=== PATIENT | male | born 1960 | race Caucasian/White ===

== ENCOUNTER 2019-08-09 06:00 | Outpatient (RCR) | payer MEDICARE, SELFPAY | END 2019-09-08 00:01 | LOC: TPT 06:00 | PROVIDERS: Family Provider Specialist; Visit Provider Anesthesiology Pain Medicine | DX: M47.816 Spondylosis without myelopathy or radiculopathy, lumbar region (principal) | CPT/HCPCS: 97110 ×5; G0283 ×5 ==

== ENCOUNTER 2019-09-09 12:15 | Outpatient (RCR) | payer MEDICARE, SELFPAY | END 2019-10-09 23:59 | disposition home or self-care (01) | LOC: TPT 12:15 | PROVIDERS: PCP Anesthesiology Pain Medicine; Visit Provider Anesthesiology Pain Medicine | DX: M47.26 Other spondylosis with radiculopathy, lumbar region (principal); M48.061 Spinal stenosis, lumbar region without neurogenic claudication | CPT/HCPCS: 97110; 97530; G0283 ==

== ENCOUNTER 2019-10-13 15:30 | Outpatient (RCR) | payer MEDICARE, SELFPAY | END 2019-11-07 23:59 | disposition home or self-care (01) | LOC: TPT 15:30 | PROVIDERS: PCP Anesthesiology Pain Medicine; Visit Provider Anesthesiology Pain Medicine | DX: Z01.89 Encounter for other specified special examinations (principal) ==

== ENCOUNTER 2022-02-24 09:34 | Inpatient (IN) | payer MEDICARE, SELFPAY ==
[2022-02-24 09:50] VITALS: BP 134/80; PULSE 86; RESP 18; TEMP 36.7; O2SAT 95; BMI 29.0
--- NOTE | 2022-02-24 10:20 | ECG_ITS ---
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 Measurements Intervals [place] Rate: 77 P: 26 AL: 154 QRS: 66 QRSD: 98 T: 77 QT: 363 QTc: 411 Interpretive Statements SINUS RHYTHM No previous ECG available for comparison Electronically Signed On 02-25-2022 13:04:01 CDT by Kera Banerjee M.D. [id number]
--- NOTE | 2022-02-24 10:27 | USR_ITS ---
PROCEDURE INFORMATION: Exam: US Duplex Right Lower Extremity Veins, Limited Exam date and time: 02/24/2022 10:34 AM Age: 61 years old Clinical indication: Pain; Leg, lower; Right; Additional info: R leg pain TECHNIQUE: Imaging protocol: Real-time Duplex ultrasound of the Right Lower Extremity with 2-D zamora scale, color Doppler flow and spectral waveform analysis with image documentation. Limited exam was focused on the right lower extremity veins. COMPARISON: No relevant prior studies available. FINDINGS: Right deep veins: Unremarkable. The common femoral, femoral, proximal profunda femoral and popliteal veins are patent without thrombus. Normal Doppler waveforms. Normal compressibility and/or augmentation response. Right superficial veins: Unremarkable. Saphenofemoral junction is patent without thrombus. Soft tissues: Unremarkable. US/[place] [id number] IMPRESSION: No evidence of deep vein thrombosis.
[2022-02-24] MEDS: sodium chloride 0.9% 500 ML IV (11:12)
[2022-02-24 11:25] VITALS: BP 164/79; RESP 18; O2SAT 97
[2022-02-24 11:28] LABS: Basophils % 0.3 %; Eosinophils # 0.1 10^3/uL (0.0-0.8); Eosinophils % 0.5 %; Hematocrit 37.3 % (42.0-52.0); Hemoglobin 12.6 g/dL (11.7-16.6); Lymphocytes # 0.6 10^3/uL (0.8-4.8); Lymphocytes % 3.9 %; Mean Corpuscular HGB Conc 33.8 g/dL (30.0-36.0); Mean Corpuscular Volume 91.9 fl (80-94); Mean Platelet Volume 10.6 fL (7.4-10.4); Monocytes # 0.5 10^3/uL (0.2-0.9); Neutrophils # 13.81 10^3/uL (1.8-7.7); Neutrophils % 91.2 %; Nucleated Red Blood Cells % 0 %; Platelet Count 91 10^3/cmm (130-400); Red Blood Count 4.06 10^6/uL (4.1-5.3); Red Cell Distribution Width 15.9 % (12.1-15.1); White Blood Count 15.2 10^3/uL (4.0-10.0)
[2022-02-24 11:59] LABS: Add Urine Culture? No; Add Urine Microscopic? YES; Bacteria Urine 1+ /hpf; Bilirubin Urine Neg (Negative); Blood Urine 2+ (Negative); Glucose Urine UA Norm (Normal); Ketones Urine Negative (Negative); Leukocyte Esterase Urine Negative (Negative); Nitrate Urine Negative (Negative); Protein Urine 1+ (Negative); RBC Urine 0-4 /hpf (0-2); Specific Gravity, Urine 1.015 (1.005-1.030); Squamous Epithelial Cell Urine 0-4 /hpf (0-5); Urine Appearance SL Hazy (CLEAR); Urine Color Dark Yellow (Yellow); Urobilinogen Urine Norm (Negative); pH Urine 5 (5-7)
[2022-02-24 12:02] LABS: Alanine Aminotransferase 41 U/L (0-41); Albumin Level 4.3 g/dL (3.5-5.2); Alkaline Phosphatase 146 IU/L (40-130); Anion Gap 23.3 (5-19); Aspartate Amino Transferase 30 U/L (0-40); Blood Urea Nitrogen 55 mg/dL (8-23); Calcium 9.4 mg/dL (8.5-10.5); Carbon Dioxide 23 mmol/L (22-29); Chloride 94 mmol/L (98-107); Globulin 4.5 g/dL (1.3-4.6); Glomerular Filtration Rate 7.7 mL/min (90-130); Glucose 272 mg/dL (65-115); Magnesium 2.2 mg/dL (1.7-2.3); Osmolality Calculated 303 mOsm/kg (285-295); Potassium 6.3 mmol/L (3.5-5.1); Sodium 134 mmol/L (136-145); Total Bilirubin 0.7 mg/dL (0.15-1.2); Total Protein 8.8 g/dL (6.6-8.7)
--- NOTE | 2022-02-24 12:36 | PC.NURSE ---
Rounded on pt at this time. Pt requesting more fluids. Will discuss with
--- NOTE | 2022-02-24 12:42 | W.ED.AMS ---
HPI - Altered Mental Status General: Chief Complaint: Altered Mental Status Stated Complaint: cramps Time Seen by Provider: 02/24/22 10:09 Source: patient Mode of arrival: ambulatory Limitations: no limitations PFSH ED PFSH: Medical History (Updated 02/24/22 @ 13:58 by Montrell Jeffries MD) History of end stage renal disease History of penile cancer Surgical History (Updated 02/24/22 @ 13:55 by Montrell Jeffries MD) History of liver transplant Family History (Updated 02/24/22 @ 13:58 by Montrell Jeffries MD) Father No problems noted. Mother Cancer Social History (Updated 02/24/22 @ 13:57 by Montrell Jeffries MD) Smoking and tobacco status: never smoked Alcohol intake: never Substance/Drug Use: never Course Vital Signs: Vital signs: Vital Signs Temperature 98.0 F 02/24/22 09:50 Pulse Rate 90 02/24/22 13:00 Respiratory Rate 16 02/24/22 13:00 Blood Pressure 191/73 02/24/22 14:02 Pulse Oximetry 100 02/24/22 13:00 MDM - Altered Mental Status Lab Data : 02/24/22 11:00 02/24/22 11:00 Radiology Impressions Venous Duplex 02/24/22 10:27 IMPRESSION: No evidence of deep vein thrombosis. Laboratory Results WBC 15.2 10^3/uL (4.0-10.0) H 02/24/22 11:00 RBC 4.06 10^6/uL (4.1-5.3) L 02/24/22 11:00 Hgb 12.6 g/dL (11.7-16.6) 02/24/22 11:00 Hct 37.3 % (42.0-52.0) L 02/24/22 11:00 MCV 91.9 fl (80-94) 02/24/22 11:00 MCH 31.0 pg (28.0-34.0) 02/24/22 11:00 MCHC 33.8 g/dL (30.0-36.0) 02/24/22 11:00 RDW 15.9 % (12.1-15.1) H 02/24/22 11:00 Plt Count 91 10^3/cmm (130-400) L 02/24/22 11:00 MPV 10.6 fL (7.4-10.4) H 02/24/22 11:00 Neut % (Auto) 91.2 % 02/24/22 11:00 Lymph % (Auto) 3.9 % 02/24/22 11:00 [place] % (Auto) 3.0 % 02/24/22 11:00 Eos % (Auto) 0.5 % 02/24/22 11:00 Baso % (Auto) 0.3 % 02/24/22 11:00 Neut # (Auto) 13.81 10^3/uL (1.8-7.7) H 02/24/22 11:00 Lymph # (Auto) 0.6 10^3/uL (0.8-4.8) L 02/24/22 11:00 [place] # (Auto) 0.5 10^3/uL (0.2-0.9) 02/24/22 11:00 Eos # (Auto) 0.1 10^3/uL (0.0-0.8) 02/24/22 11:00 Baso # (Auto) 0.0 10^3/uL (0.0-0.1) 02/24/22 11:00 Nucleated RBC % (auto) 0 % 02/24/22 11:00 Nucleated RBCs # 0.0 /100WBC 02/24/22 11:00 Sodium 134 mmol/L (136-145) L 02/24/22 11:00 Potassium 6.3 mmol/L (3.5-5.1) H 02/24/22 11:00 Chloride 94 mmol/L (98-107) L 02/24/22 11:00 Carbon Dioxide 23 mmol/L (22-29) 02/24/22 11:00 Anion Gap 23.3 (5-19) H 02/24/22 11:00 BUN 55 mg/dL (8-23) H 02/24/22 11:00 Creatinine 7.2 mg/dL (0.7-1.2) H* 02/24/22 11:00 GFR Calculation 7.7 mL/min (90-130) L 02/24/22 11:00 Glucose 272 mg/dL (65-115) H 02/24/22 11:00 Calculated Osmolality 303 mOsm/kg (285-295) H 02/24/22 11:00 Calcium 9.4 mg/dL (8.5-10.5) 02/24/22 11:00 Magnesium 2.2 mg/dL (1.7-2.3) 02/24/22 11:00 Total Bilirubin 0.7 mg/dL (0.15-1.2) 02/24/22 11:00 AST 30 U/L (0-40) 02/24/22 11:00 ALT 41 U/L (0-41) 02/24/22 11:00 Alkaline Phosphatase 146 IU/L (40-130) H 02/24/22 11:00 Total Protein 8.8 g/dL (6.6-8.7) H 02/24/22 11:00 Albumin 4.3 g/dL (3.5-5.2) 02/24/22 11:00 Globulin 4.5 g/dL (1.3-4.6) 02/24/22 11:00 Urine Color Dark yellow (Yellow) 02/24/22 11:00 Urine Appearance Sl hazy (CLEAR) 02/24/22 11:00 Urine pH 5 (5-7) 02/24/22 11:00 Ur Specific [place] 1.015 (1.005-1.030) 02/24/22 11:00 Urine Protein 1+ (Negative) H 02/24/22 11:00 Urine Glucose (UA) Norm (Normal) 02/24/22 11:00 Urine Ketones Negative (Negative) 02/24/22 11:00 Urine Blood 2+ (Negative) H 02/24/22 11:00 Urine Nitrate Negative (Negative) 02/24/22 11:00 Urine Bilirubin Neg (Negative) 02/24/22 11:00 Urine Urobilinogen Norm mg/dL (Negative) 02/24/22 11:00 Ur Leukocyte Esterase Negative (Negative) 02/24/22 11:00 Urine RBC 0-4 /hpf (0-2) H 02/24/22 11:00 Urine WBC 5-10 /hpf (0-5) H 02/24/22 11:00 Ur Squamous Epith Cells 0-4 /hpf (0-5) H 02/24/22 11:00 Amorphous Sediment Not Reportable 02/24/22 11:00 Urine Bacteria 1+ /hpf (NONE) H 02/24/22 11:00 Discharge Plan Discharge Condition: Stable Prescriptions: No Action carvedilol 25 mg tablet 25 mg PO BID 0RF atorvastatin 20 mg tablet 20 mg PO BEDTIME 0RF amlodipine 5 mg tablet 2.5 mg PO DAILY 0RF furosemide 80 mg tablet 80 mg PO BID 0RF pantoprazole 40 mg tablet,delayed release (DR/EC) 40 mg PO DAILY 0RF gabapentin 300 mg capsule 600 mg PO TID PRN (Reason: Pain) 0RF metolazone 10 mg tablet 10 mg PO TID 0RF fluticasone propionate 50 mcg/actuation spray,suspension 1 spray INTRANASAL DAILY 0RF tacrolimus 1 mg capsule 2 mg PO BID 0RF oxycodone 5 mg tablet 5 - 10 mg PO Q4H PRN (Reason: Pain) 0RF calcium acetate(phosphat bind) 667 mg capsule See Rx Instructions .ROUTE .COMPLEX 0RF Rx Instructions: TAKE TWO TABS WITH MEALS AND ONE TAB WITH SNACKS Xin Boyle U-100 Insulin 100 unit/mL (3 mL) insulin pen 35 unit SUBCUT DAILY 0RF OxyContin 10 mg tablet,oral only,ext.rel.12 hr 10 mg PO DAILY 0RF Referrals: Robert Sanchez MD [Primary Care Provider] - Coding Level of Care Code ED Talent Acquisition Administrator for Dallin Florentino
[2022-02-24 13:00] VITALS: BP 180/92; PULSE 90; RESP 16; O2SAT 100
[2022-02-24] MEDS: calcium chloride 10% Syr 10 mL 2 GM IVP (13:08)
[2022-02-24] MEDS: sodium polystyrene sulfonate 15 gm/60 mL Btl 30 GM PO (13:09)
[2022-02-24] MEDS: insulin regular-human 100 units/1 mL 10 UNIT IVP (13:09)
--- NOTE | 2022-02-24 13:18 | P.CONIM_ITS ---
Providers/Reason For Consult Consulting Physician/Specialty*: Nephrology Reason for Consult*: ESRD mgmt Primary Care Provider: Robert Sanchez MD History of Present Illness History of Present Illness Thank for consultation, Mr. Gibbs presents to our facility for severe cramping in his right lower extremity. I took over 4 L in dialysis yesterday. The cramping became recalcitrant and so he presented to our facility for care. He did get a 500 mL bolus of normal saline and this did help a little bit, however, he still has ongoing persistent cramping. He has been on dialysis for 6 months with renal failure secondary to his immunosuppression for his liver transplant i.e. calcineurin inhibitor therapy. He has a right tunneled catheter. Typically on for 3 hours. He gets dialysis at the [facility] in [place]. No other acute symptoms at this time. Medications/Allergies Home Medications Medication Instructions Recorded Confirmed Last Taken Type amlodipine 5 mg tablet 2.5 mg PO DAILY 02/24/22 02/24/22 02/24/22 History atorvastatin 20 mg tablet 20 mg PO BEDTIME 02/24/22 02/24/22 Unknown History calcium acetate(phosphat bind) 667 See Rx Instructions .ROUTE .COMPLEX 02/24/22 02/24/22 02/24/22 History mg capsule carvedilol 25 mg tablet 25 mg PO BID 02/24/22 02/24/22 02/24/22 History fluticasone propionate 50 1 spray INTRANASAL DAILY 02/24/22 02/24/22 02/24/22 History mcg/actuation nasal spray,suspension furosemide 80 mg tablet 80 mg PO BID 02/24/22 02/24/22 02/24/22 History gabapentin 300 mg capsule 600 mg PO TID PRN 02/24/22 02/24/22 Unknown History insulin glargine 100 unit/mL (3 35 unit SUBCUT DAILY 02/24/22 02/24/22 02/24/22 History mL) subcutaneous pen (Basaglar KwikPen U-100 Insulin) metolazone 10 mg tablet 10 mg PO TID 02/24/22 02/24/22 02/24/22 History oxycodone 10 mg tablet,crush 10 mg PO DAILY 02/24/22 02/24/22 02/24/22 History resistant,extended release 12 hr (OxyContin) oxycodone 5 mg tablet 5 - 10 mg PO Q4H PRN 02/24/22 02/24/22 Unknown History pantoprazole 40 mg tablet,delayed 40 mg PO DAILY 02/24/22 02/24/22 02/24/22 History release tacrolimus 1 mg capsule, 2 mg PO BID 02/24/22 02/24/22 02/24/22 History immediate-release Allergies Allergy/AdvReac Type Severity Reaction Status Date / Time No Known Allergies Allergy Verified 02/24/22 09:50 Vitals/I&O/Wt Last Vital Signs Temp 98.0 F 02/24/22 09:50 Pulse 86 02/24/22 09:50 Resp 18 02/24/22 11:25 BP 164/79 02/24/22 11:25 Pulse Ox 97 02/24/22 11:25 Weight last 48 hrs Weight 99.79 kg Physical Exam Narrative: Constitutional: Awake, comfortable HEENT: Wet mucosa, no jvp, non icteric Lungs: Bilaterally clear without discernible wheeze or rales in all lung zones CVS: S1 S2, no murmurs Abdo: Soft, BS ok Ext 4: Minimal edema, peripheral perfusion with no cyanosis Neurological: Grossly non-focal Data : 02/24/22 11:00 02/24/22 11:00 A&P Assessment and plan (1) ESRD (end stage renal disease): Status: Acute Plan 1. ESRD short run of HD today 3hrs, 2K, no UF 2. Cramping An old therapy for this is pickle juice. Discussed with the staff to provide this for him if they have it available. We will give him another 1 L bolus of normal saline. Minimal ultrafiltration with dialysis and he should increase his estimated dry weight as an outpatient. 3. Hyperkalemia Will bring this down definitively with dialysis so that he is safe for discharge. 4. Disposition Okay for discharge after dialysis if the cramping has resolved. Thank you for consultation, it is a pleasure to follow these cases with you Exam and interview performed with aid of bedside RN using telemedicine Time spent 20 min inc > 50% of time in face to face counseling Denis Pinto MD [facility] [phone] Coding Level of Care Code Acute General Internal Medicine Doctor for Chg Fwd Diagnoses ESRD (end stage renal disease) N18.6
--- NOTE | 2022-02-24 13:24 | PC.NURSE ---
Pt provided pickle juice at this time and drank at this time.
[2022-02-24] MEDS: sodium chloride 0.9% 1,000 ML 999 ML IV (13:31)
--- NOTE | 2022-02-24 13:44 | XRR_ITS ---
PROCEDURE INFORMATION: Exam: XR Chest Exam date and time: 02/24/2022 1:53 PM Age: 61 years old Clinical indication: Abnormal findings; Abnormal diagnostic tests; Abnormal ekg; Additional info: Elevated wbc TECHNIQUE: Imaging protocol: Radiologic exam of the chest. Views: 1 view. COMPARISON: No relevant prior studies available. FINDINGS: Tubes, catheters and devices: Right lower IJ catheter with catheter tip in the cavoatrial region. Lungs: The lung bases are suboptimally assessed due to technique however the upper lungs are clear of focal consolidation. Ill-defined right basilar patchy opacity suggesting atelectasis versus pneumonia and probable small right pleural effusion. Tiny left basilar linear opacities likely atelectasis or scarring. Probable upper lobe emphysematous changes. Pleural spaces: See Lungs finding. No pneumothorax. Heart/Mediastinum: Cardiac silhouette appears normal in size. No obvious vascular congestion. Bones/joints: No acute osseous findings. Other findings: Single view was submitted. XR/XR chest 1V portable [id number] IMPRESSION: Bibasilar opacities as described. Probable emphysematous changes.
--- NOTE | 2022-02-24 13:49 | PM.HP ---
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 Patient tells me that he is from [facility], he is here in [place], yesterday he got dialysis, and he felt that they took too much fluid off of him, after dialysis he started getting cramps in his bilateral lower extremities, he thought he could sleep through it, so he slept this morning he woke up with again severe Cramps in bilateral extremities. Denies any chest pain, palpitations, lightheaded, dizziness, no nausea, no vomiting, no fevers, chills, no dysuria, no flank pain, in the emergency room he was found to be hyperkalemic potassium 6.2, creatinine 7.2, has received a bag of IV fluids, he feels already better, there are plans on ultrafiltration dialysis, he tells me he wants to go home after, he refuses to stay here in the hospital he tells me he is going to do fine. Denies any fevers, no cough, no chest pain, no palpitations, no cardiovascular history no history of strokes. He again is adamant that he wants to go home after dialysis, he refuses to stay here in the hospital after dialysis, he is agreeable to check CMP after dialysis, discuss morbidity mentality associated with hyperkalemia, end-stage renal disease, leaving the hospital prematurely, he voices any, all questions answered. He is agreeable to stay here after dialysis, repeat blood work, but tells me he is leaving right after Review of Systems Const: Denies: fever(s), chills, fatigue or malaise Eyes: Denies: change in vision ENMT: Denies: nasal congestion Resp: Denies: dyspnea, productive cough, non-productive cough or wheezing GI: Denies: abdominal pain, nausea, vomiting or hematemesis : Denies: dysuria Musc: Denies: back pain Neuro: Denies: headache(s), dizziness or vertigo Medications/Allergies Home Medications Medication Instructions Recorded Confirmed Last Taken Type amlodipine 5 mg tablet 2.5 mg PO DAILY 02/24/22 02/24/22 02/24/22 History atorvastatin 20 mg tablet 20 mg PO BEDTIME 02/24/22 02/24/22 Unknown History calcium acetate(phosphat bind) 667 See Rx Instructions .ROUTE .COMPLEX 02/24/22 02/24/22 02/24/22 History mg capsule carvedilol 25 mg tablet 25 mg PO BID 02/24/22 02/24/22 02/24/22 History fluticasone propionate 50 1 spray INTRANASAL DAILY 02/24/22 02/24/22 02/24/22 History mcg/actuation nasal spray,suspension furosemide 80 mg tablet 80 mg PO BID 02/24/22 02/24/22 02/24/22 History gabapentin 300 mg capsule 600 mg PO TID PRN 02/24/22 02/24/22 Unknown History insulin glargine 100 unit/mL (3 35 unit SUBCUT DAILY 02/24/22 02/24/22 02/24/22 History mL) subcutaneous pen (Basaglar KwikPen U-100 Insulin) metolazone 10 mg tablet 10 mg PO TID 02/24/22 02/24/22 02/24/22 History oxycodone 10 mg tablet,crush 10 mg PO DAILY 02/24/22 02/24/22 02/24/22 History resistant,extended release 12 hr (OxyContin) oxycodone 5 mg tablet 5 - 10 mg PO Q4H PRN 02/24/22 02/24/22 Unknown History pantoprazole 40 mg tablet,delayed 40 mg PO DAILY 02/24/22 02/24/22 02/24/22 History release tacrolimus 1 mg capsule, 2 mg PO BID 02/24/22 02/24/22 02/24/22 History immediate-release Allergies Allergy/AdvReac Type Severity Reaction Status Date / Time No Known Allergies Allergy Verified 02/24/22 09:50 PFSH Acute PFSH: Medical History (Updated 02/24/22 @ 13:58 by Montrell Jeffries MD) History of end stage renal disease History of penile cancer Surgical History (Updated 02/24/22 @ 13:55 by Montrell Jeffries MD) History of liver transplant Family History (Updated 02/24/22 @ 13:58 by Montrell Jeffries MD) Father No problems noted. Mother Cancer Social History (Updated 02/24/22 @ 13:57 by Montrell Jeffries MD) Smoking and tobacco status: never smoked Alcohol intake: never Substance/Drug Use: never Vitals/I&O/Wt Last Vital Signs Temp 98.0 F 02/24/22 09:50 Pulse 86 02/24/22 09:50 Resp 18 02/24/22 11:25 BP 164/79 02/24/22 11:25 Pulse Ox 97 02/24/22 11:25 Weight last 48 hrs Weight 99.79 kg Physical Exam Const: COMMON NORMALS: no acute distress and patient oriented x3 HENMT: COMMON NORMALS: normocephalic HEAD & SCALP: normocephalic Neck/C-Spine: COMMON NORMALS: no JVD Resp: COMMON NORMALS: normal respiratory effort, No retractions, No use of accessory muscles and clear to auscultation bilaterally AUSCULTATION: clear to auscultation bilaterally Cardio: COMMON NORMALS: no JVD, regular rate, regular rhythm, S1 normal heart sound present and S2 normal heart sound present RATE: regular rate RHYTHM: regular rhythm HEART SOUNDS: S1 normal heart sound present and S2 normal heart sound present GI: COMMON NORMALS: Normal to inspection, nondistended, normoactive bowel sounds present, Soft to palpation, non-tender, No hepatosplenomegaly present, no masses and no bruits PALPATION: Yes Soft to palpation and Yes No hepatosplenomegaly present Extremity: COMMON NORMALS: capillary refill normal, no clubbing, cyanosis or edema, no calf tenderness and no pedal edema Neuro: COMMON NORMALS: patient oriented x3 Psych: COMMON NORMALS: mental status grossly normal Data : 02/24/22 11:00 02/24/22 11:00 A&P Assessment and plan (1) ESRD (end stage renal disease): Status: Acute (2) Hyperkalemia: Status: Acute Plan End-stage renal disease, with hyperkalemia with muscle cramps -Undergoing dialysis -Has received fluids -Has received calcium gluconate -Recheck CMP after dialysis -Can discharge thereafter if cramping has resolved, potassium is improved -Full code -Lovenox for DVT prophylaxis Attestations Medical Necessity Statement*: Patient will be discharged after dialysis today end-stage renal disease hyperkalemia, muscle cramps Coding Level of Care Code Acute Perinatal Specialist for Chg Fwd Diagnoses ESRD (end stage renal disease) N18.6 Hyperkalemia E87.5
[2022-02-24 14:02] VITALS: BP 191/73
--- NOTE | 2022-02-24 14:32 | ED_ITS ---
HPI - General Adult General: Chief complaint: Altered Mental Status Stated complaint: cramps Time Seen by Provider: 02/24/22 10:09 Source: patient Mode of arrival: ambulatory Limitations: no limitations History of Present Illness: 61-year-old male presents to the emergency room with complaints of leg cramping. Yesterday at around dialysis he thought they took too much weight off of him and began having some cramping worsened throughout the night he was little bit confused and disoriented last night states he fell asleep crumpled over and is closed when he awoke he was more coherent. He denies striking his head denies any loss consciousness no chest or abdominal pain no shortness of breath. He continues to have intermittent spasmatic cramping in his lower extremities during the exam. Right worse than left Onset (ago): minute(s) Location: right and lower extremity Severity: moderate Quality: sharp Pain Consistency: intermittent Relieving factors: none Exacerbating factors: none Associated symptoms: Deny chest pain, confusion, cough, diaphoresis, decreased appetite, dyspnea, fevers/chills, headache(s), malaise, nausea, rash, palpitations, seizures, short of breath, syncope, vomiting or weakness Treatments prior to arrival: none Review of Systems Const: Denies: malaise or diaphoresis Card: Denies: chest pain, palpitations or syncope Resp: Denies: dyspnea GI: Denies: nausea or vomiting Skin/Breast: Denies: rash Neuro: Denies: headache(s) or confusion PFSH ED PFSH: Medical History History of end stage renal disease History of penile cancer Surgical History History of liver transplant Family History Father No problems noted. Mother Cancer Social History Smoking and tobacco status: never smoked Alcohol intake: never Substance/Drug Use: never Physical Exam Const: COMMON NORMALS: no acute distress GENERAL APPEARANCE: cooperative and comfortable ORIENTATION/CONSCIOUSNESS: Yes awake, Yes oriented to person, Yes oriented to place and Yes oriented to time HENMT: COMMON NORMALS: normocephalic, atraumatic, hearing grossly normal bilaterally, external ears normal, EAC's normal, TM's normal bilaterally, Normal nasal mucous membranes and turbinates present, moist oral mucous membranes and oropharynx normal HEAD & SCALP: normocephalic and atraumatic NOSE: Normal nasal mucous membranes and turbinates present EXTERNAL EAR: Yes external ears normal EXTERNAL AUDITORY CANAL: EAC's normal TYMPANIC MEMBRANE: TM's normal bilaterally Eye: COMMON NORMALS: Equal, round and reactive pupils present, EOMs intact b ilaterally, conjunctivae normal and no scleral icterus CONJUNCTIVA: Yes c onjunctivae normal PUPIL: Yes Equal, round and reactive pupils present Neck/C-Spine: COMMON NORMALS: no JVD Resp: COMMON NORMALS: normal respiratory effort, No retractions, No use of accessory muscles and clear to auscultation bilaterally AUSCULTATION: clear to auscultation bilaterally Cardio: COMMON NORMALS: no JVD, regular rate, regular rhythm and No murmurs present (Cardio) RATE: regular rate RHYTHM: regular rhythm GI: COMMON NORMALS: Soft to palpation and No hepatosplenomegaly present AUSCULTATION: Yes normoactive bowel sounds PALPATION: Yes Soft to palpation, No Tenderness to palpation present (GI), No Guarding due to palpation present (GI) and Yes No hepatosplenomegaly present Extremity: COMMON NORMALS: normal to inspection, capillary refill normal, no clubbing, cyanosis or edema and no pedal edema OTHER: Squeeze a tenderness mild palpation the right lower extremity Neuro: SENSORIUM/ORIENTATION: Yes oriented to person, Yes oriented to place and Yes oriented to time Skin: OTHER: Varicosities lower extremities chronic skin changes. No edema Course Vital Signs: Vital signs: Vital Signs Temperature 98.0 F 02/24/22 09:50 Pulse Rate 90 02/24/22 13:00 Respiratory Rate 16 02/24/22 13:00 Blood Pressure 191/73 02/24/22 14:02 Pulse Oximetry 100 02/24/22 13:00 [facility] - General Adult Medical Decision Making Hyperkalemia. He has end-stage renal disease he was given calcium chloride as well as Kayexalate consult nephrology admit to the hospitalist patient will need dialysis prior to leaving the hospital. Medical Records I reviewed the patient's medical records. Lab Data I reviewed the patient's lab results. : 02/24/22 11:00 02/24/22 11:00 Radiology Impressions Venous Duplex 02/24/22 10:27 IMPRESSION: No evidence of deep vein thrombosis. Laboratory Results WBC 15.2 10^3/uL (4.0-10.0) H 02/24/22 11:00 RBC 4.06 10^6/uL (4.1-5.3) L 02/24/22 11:00 Hgb 12.6 g/dL (11.7-16.6) 02/24/22 11:00 Hct 37.3 % (42.0-52.0) L 02/24/22 11:00 MCV 91.9 fl (80-94) 02/24/22 11:00 MCH 31.0 pg (28.0-34.0) 02/24/22 11:00 MCHC 33.8 g/dL (30.0-36.0) 02/24/22 11:00 RDW 15.9 % (12.1-15.1) H 02/24/22 11:00 Plt Count 91 10^3/cmm (130-400) L 02/24/22 11:00 MPV 10.6 fL (7.4-10.4) H 02/24/22 11:00 Neut % (Auto) 91.2 % 02/24/22 11:00 Lymph % (Auto) 3.9 % 02/24/22 11:00 [place] % (Auto) 3.0 % 02/24/22 11:00 Eos % (Auto) 0.5 % 02/24/22 11:00 Baso % (Auto) 0.3 % 02/24/22 11:00 Neut # (Auto) 13.81 10^3/uL (1.8-7.7) H 02/24/22 11:00 Lymph # (Auto) 0.6 10^3/uL (0.8-4.8) L 02/24/22 11:00 [place] # (Auto) 0.5 10^3/uL (0.2-0.9) 02/24/22 11:00 Eos # (Auto) 0.1 10^3/uL (0.0-0.8) 02/24/22 11:00 Baso # (Auto) 0.0 10^3/uL (0.0-0.1) 02/24/22 11:00 Nucleated RBC % (auto) 0 % 02/24/22 11:00 Nucleated RBCs # 0.0 /100WBC 02/24/22 11:00 Sodium 134 mmol/L (136-145) L 02/24/22 11:00 Potassium 6.3 mmol/L (3.5-5.1) H 02/24/22 11:00 Chloride 94 mmol/L (98-107) L 02/24/22 11:00 Carbon Dioxide 23 mmol/L (22-29) 02/24/22 11:00 Anion Gap 23.3 (5-19) H 02/24/22 11:00 BUN 55 mg/dL (8-23) H 02/24/22 11:00 Creatinine 7.2 mg/dL (0.7-1.2) H* 02/24/22 11:00 GFR Calculation 7.7 mL/min (90-130) L 02/24/22 11:00 Glucose 272 mg/dL (65-115) H 02/24/22 11:00 Calculated Osmolality 303 mOsm/kg (285-295) H 02/24/22 11:00 Calcium 9.4 mg/dL (8.5-10.5) 02/24/22 11:00 Magnesium 2.2 mg/dL (1.7-2.3) 02/24/22 11:00 Total Bilirubin 0.7 mg/dL (0.15-1.2) 02/24/22 11:00 AST 30 U/L (0-40) 02/24/22 11:00 ALT 41 U/L (0-41) 02/24/22 11:00 Alkaline Phosphatase 146 IU/L (40-130) H 02/24/22 11:00 Total Protein 8.8 g/dL (6.6-8.7) H 02/24/22 11:00 Albumin 4.3 g/dL (3.5-5.2) 02/24/22 11:00 Globulin 4.5 g/dL (1.3-4.6) 02/24/22 11:00 Urine Color Dark yellow (Yellow) 02/24/22 11:00 Urine Appearance Sl hazy (CLEAR) 02/24/22 11:00 Urine pH 5 (5-7) 02/24/22 11:00 Ur Specific [place] 1.015 (1.005-1.030) 02/24/22 11:00 Urine Protein 1+ (Negative) H 02/24/22 11:00 Urine Glucose (UA) Norm (Normal) 02/24/22 11:00 Urine Ketones Negative (Negative) 02/24/22 11:00 Urine Blood 2+ (Negative) H 02/24/22 11:00 Urine Nitrate Negative (Negative) 02/24/22 11:00 Urine Bilirubin Neg (Negative) 02/24/22 11:00 Urine Urobilinogen Norm mg/dL (Negative) 02/24/22 11:00 Ur Leukocyte Esterase Negative (Negative) 02/24/22 11:00 Urine RBC 0-4 /hpf (0-2) H 02/24/22 11:00 Urine WBC 5-10 /hpf (0-5) H 02/24/22 11:00 Ur Squamous Epith Cells 0-4 /hpf (0-5) H 02/24/22 11:00 Amorphous Sediment Not Reportable 02/24/22 11:00 Urine Bacteria 1+ /hpf (NONE) H 02/24/22 11:00 Discharge Plan Discharge Condition: Stable Prescriptions: No Action carvedilol 25 mg tablet 25 mg PO BID 0RF atorvastatin 20 mg tablet 20 mg PO BEDTIME 0RF amlodipine 5 mg tablet 2.5 mg PO DAILY 0RF furosemide 80 mg tablet 80 mg PO BID 0RF pantoprazole 40 mg tablet,delayed release (DR/EC) 40 mg PO DAILY 0RF gabapentin 300 mg capsule 600 mg PO TID PRN (Reason: Pain) 0RF metolazone 10 mg tablet 10 mg PO TID 0RF fluticasone propionate 50 mcg/actuation spray,suspension 1 spray INTRANASAL DAILY 0RF tacrolimus 1 mg capsule 2 mg PO BID 0RF oxycodone 5 mg tablet 5 - 10 mg PO Q4H PRN (Reason: Pain) 0RF calcium acetate(phosphat bind) 667 mg capsule See Rx Instructions .ROUTE .COMPLEX 0RF Rx Instructions: TAKE TWO TABS WITH MEALS AND ONE TAB WITH SNACKS Xin Boyle U-100 Insulin 100 unit/mL (3 mL) insulin pen 35 unit SUBCUT DAILY 0RF OxyContin 10 mg tablet,oral only,ext.rel.12 hr 10 mg PO DAILY 0RF Referrals: Robert Sanchez MD [Primary Care Provider] - Coding Level of Care Code ED Supervisor Sunglasses for Dallin Florentino
[2022-02-24] MEDS: heparin, porcine 1,000 unit/mL INJ 10 mL 10000 UNIT HE (18:41)
--- NOTE | 2022-02-24 18:41 | PC.NURSE ---
Patient reports he is not staying after dialysis is completed. Telenephrologist told patient he could get a clean wash and go .
--- NOTE | 2022-02-24 19:36 | PC.NURSE ---
[id number] Patient remains in dialysis treatments. Per Dr Jeffries patient is to have repeat lab draw prior to discharge home and patient can be discharged home as long as his potassium level is improved. Dr Jeffries would like lab results called to on-call physician when they are resulted and decision for discharge will be made. Patient is very adamant that he is leaving after dialysis treatment is completed. Lab has been called to re-draw patient's labs.
[2022-02-24 19:39] LABS: Alanine Aminotransferase 32 U/L (0-41); Albumin Level 3.9 g/dL (3.5-5.2); Alkaline Phosphatase 109 IU/L (40-130); Anion Gap 15.4 (5-19); Aspartate Amino Transferase 20 U/L (0-40); Blood Urea Nitrogen 21 mg/dL (8-23); Calcium 9.1 mg/dL (8.5-10.5); Carbon Dioxide 28 mmol/L (22-29); Chloride 98 mmol/L (98-107); Globulin 3.4 g/dL (1.3-4.6); Glomerular Filtration Rate 19.7 mL/min (90-130); Glucose 129 mg/dL (65-115); Osmolality Calculated 291 mOsm/kg (285-295); Potassium 3.4 mmol/L (3.5-5.1); Sodium 138 mmol/L (136-145); Total Bilirubin 0.5 mg/dL (0.15-1.2); Total Protein 7.3 g/dL (6.6-8.7)
[2022-02-24 19:45] VITALS: BP 151/77; PULSE 106; RESP 19; TEMP 37; O2SAT 91
[2022-02-24 19:48] LABS: Cholesterol 214 mg/dL (0-200); HDL Cholesterol 51 mg/dL (60-100); LDL Cholesterol Calculated 129 mg/dL (50-129); LDL HDL Ratio 2.53 RATIO (0.00-3.22); Thyroid Stimulating Hormone 1.05 uIU/mL (0.27-4.20); Triglycerides 168 mg/dL (0-150)
[2022-02-24 20:04] VITALS: BP 147/76; BP 196/81; PULSE 109; PULSE 77; RESP 16; RESP 18; TEMP 36.8
--- NOTE | 2022-02-24 20:04 | PC.NURSE ---
This is a dialysis patient that is complete with his dialysis today. He informed Nesha and ER doctor he was not staying overnight. Patient does not want to wait for KCl results and says he is leaving no matter what the result is. Dr Jeffries put in d/c orders however patient insists he does not care about KCl level and is ready to leave. Patient is discharged. Last KCl is3.4. Dr Cook informed of all.
--- NOTE | 2022-03-08 16:55 | P.DS_ITS ---
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 Patient presented to [facility] for end-stage renal disease with hyperkalemia with muscles cramps, received fluids, calcium gluconate, underwent dialysis. Denies any chest pain, no palpitations. Patient was adamant about going home after dialysis, repeat blood work shows potassium 3.4. Discharged home on his regular dialysis schedule Physical Exam Const: COMMON NORMALS: no acute distress and patient oriented x3 Neck/C-Spine: COMMON NORMALS: no JVD Resp: COMMON NORMALS: normal respiratory effort, No retractions, No use of accessory muscles and clear to auscultation bilaterally AUSCULTATION: clear to auscultation bilaterally Cardio: COMMON NORMALS: no JVD, regular rate, regular rhythm, S1 normal heart sound present and S2 normal heart sound present RATE: regular rate RHYTHM: regular rhythm HEART SOUNDS: S1 normal heart sound present and S2 normal heart sound present GI: COMMON NORMALS: Normal to inspection, nondistended, normoactive bowel sounds present, Soft to palpation and non-tender PALPATION: Yes Soft to palpation Extremity: COMMON NORMALS: no pedal edema Neuro: COMMON NORMALS: patient oriented x3 Psych: COMMON NORMALS: mental status grossly normal Discharge Data Studies Completed and Pending Completed Studies During Hospitalization Category Date Time Status XR chest 1V portable [id number] Stat Exams 02/24/22 13:44 Completed US venous duplex lower extremity RT [CV venous duplex Ultrasound 02/24/22 10:27 [place] [id number]] Stat Radiology Impressions Venous Duplex 02/24/22 10:27 IMPRESSION: No evidence of deep vein thrombosis. Chest X-Ray 02/24/22 13:44 IMPRESSION: Bibasilar opacities as described. Probable emphysematous changes. Laboratory Results WBC 15.2 10^3/uL (4.0-10.0) H 02/24/22 11:00 RBC 4.06 10^6/uL (4.1-5.3) L 02/24/22 11:00 Hgb 12.6 g/dL (11.7-16.6) 02/24/22 11:00 Hct 37.3 % (42.0-52.0) L 02/24/22 11:00 MCV 91.9 fl (80-94) 02/24/22 11:00 MCH 31.0 pg (28.0-34.0) 02/24/22 11:00 MCHC 33.8 g/dL (30.0-36.0) 02/24/22 11:00 RDW 15.9 % (12.1-15.1) H 02/24/22 11:00 Plt Count 91 10^3/cmm (130-400) L 02/24/22 11:00 MPV 10.6 fL (7.4-10.4) H 02/24/22 11:00 Neut % (Auto) 91.2 % 02/24/22 11:00 Lymph % (Auto) 3.9 % 02/24/22 11:00 [place] % (Auto) 3.0 % 02/24/22 11:00 Eos % (Auto) 0.5 % 02/24/22 11:00 Baso % (Auto) 0.3 % 02/24/22 11:00 Neut # (Auto) 13.81 10^3/uL (1.8-7.7) H 02/24/22 11:00 Lymph # (Auto) 0.6 10^3/uL (0.8-4.8) L 02/24/22 11:00 [place] # (Auto) 0.5 10^3/uL (0.2-0.9) 02/24/22 11:00 Eos # (Auto) 0.1 10^3/uL (0.0-0.8) 02/24/22 11:00 Baso # (Auto) 0.0 10^3/uL (0.0-0.1) 02/24/22 11:00 Nucleated RBC % (auto) 0 % 02/24/22 11:00 Nucleated RBCs # 0.0 /100WBC 02/24/22 11:00 Sodium 138 mmol/L (136-145) 02/24/22 19:10 Potassium 3.4 mmol/L (3.5-5.1) L 02/24/22 19:10 Chloride 98 mmol/L (98-107) 02/24/22 19:10 Carbon Dioxide 28 mmol/L (22-29) 02/24/22 19:10 Anion Gap 15.4 (5-19) 02/24/22 19:10 BUN 21 mg/dL (8-23) 02/24/22 19:10 Creatinine 3.2 mg/dL (0.7-1.2) H 02/24/22 19:10 GFR Calculation 19.7 mL/min (90-130) L 02/24/22 19:10 Glucose 129 mg/dL (65-115) H 02/24/22 19:10 Calculated Osmolality 291 mOsm/kg (285-295) 02/24/22 19:10 Calcium 9.1 mg/dL (8.5-10.5) 02/24/22 19:10 Magnesium 2.2 mg/dL (1.7-2.3) 02/24/22 11:00 Total Bilirubin 0.5 mg/dL (0.15-1.2) 02/24/22 19:10 AST 20 U/L (0-40) 02/24/22 19:10 ALT 32 U/L (0-41) 02/24/22 19:10 Alkaline Phosphatase 109 IU/L (40-130) 02/24/22 19:10 Total Protein 7.3 g/dL (6.6-8.7) 02/24/22 19:10 Albumin 3.9 g/dL (3.5-5.2) 02/24/22 19:10 Globulin 3.4 g/dL (1.3-4.6) 02/24/22 19:10 Triglycerides 168 mg/dL (0-150) H 02/24/22 19:10 Cholesterol 214 mg/dL (0-200) H 02/24/22 19:10 LDL Cholesterol, Calc 129 mg/dL (50-129) 02/24/22 19:10 HDL Cholesterol 51 mg/dL (60-100) L 02/24/22 19:10 LDL/HDL Ratio 2.53 RATIO (0.00-3.22) 02/24/22 19:10 Cholesterol/HDL Ratio 4.20 mg/dL (1.0-5.00) 02/24/22 19:10 TSH 1.05 uIU/mL (0.27-4.20) 02/24/22 19:10 Urine Color Dark yellow (Yellow) 02/24/22 11:00 Urine Appearance Sl hazy (CLEAR) 02/24/22 11:00 Urine pH 5 (5-7) 02/24/22 11:00 Ur Specific [place] 1.015 (1.005-1.030) 02/24/22 11:00 Urine Protein 1+ (Negative) H 02/24/22 11:00 Urine Glucose (UA) Norm (Normal) 02/24/22 11:00 Urine Ketones Negative (Negative) 02/24/22 11:00 Urine Blood 2+ (Negative) H 02/24/22 11:00 Urine Nitrate Negative (Negative) 02/24/22 11:00 Urine Bilirubin Neg (Negative) 02/24/22 11:00 Urine Urobilinogen Norm mg/dL (Negative) 02/24/22 11:00 Ur Leukocyte Esterase Negative (Negative) 02/24/22 11:00 Urine RBC 0-4 /hpf (0-2) H 02/24/22 11:00 Urine WBC 5-10 /hpf (0-5) H 02/24/22 11:00 Ur Squamous Epith Cells 0-4 /hpf (0-5) H 02/24/22 11:00 Amorphous Sediment Not Reportable 02/24/22 11:00 Urine Bacteria 1+ /hpf (NONE) H 02/24/22 11:00 Vitals Last Vital Signs Temp 98.2 F 02/24/22 20:04 Pulse 77 02/24/22 20:04 Resp 16 02/24/22 20:04 BP 196/81 02/24/22 20:04 Pulse Ox 91 02/24/22 19:45 Discharge Plan Discharge Patient Disposition: Home Condition: Stable Prescriptions: Continued carvedilol 25 mg tablet 25 mg PO BID 0RF atorvastatin 20 mg tablet 20 mg PO BEDTIME 0RF amlodipine 5 mg tablet 2.5 mg PO DAILY 0RF furosemide 80 mg tablet 80 mg PO BID 0RF pantoprazole 40 mg tablet,delayed release (DR/EC) 40 mg PO DAILY 0RF gabapentin 300 mg capsule 600 mg PO TID PRN (Reason: Pain) 0RF metolazone 10 mg tablet 10 mg PO TID 0RF fluticasone propionate 50 mcg/actuation spray,suspension 1 spray INTRANASAL DAILY 0RF tacrolimus 1 mg capsule 2 mg PO BID 0RF oxycodone 5 mg tablet 5 - 10 mg PO Q4H PRN (Reason: Pain) 0RF calcium acetate(phosphat bind) 667 mg capsule See Rx Instructions .ROUTE .COMPLEX 0RF Rx Instructions: TAKE TWO TABS WITH MEALS AND ONE TAB WITH SNACKS Basaglar KwikPen U-100 Insulin 100 unit/mL (3 mL) insulin pen 35 unit SUBCUT DAILY 0RF OxyContin 10 mg tablet,oral only,ext.rel.12 hr 10 mg PO DAILY 0RF Discharge Orders: Discharge Order (Routine); Ordered 02/24/22 Ordered By: Montrell Jeffries Referrals: Robert Sanchez MD [Primary Care Provider] - Discharge Diet: Cardiac Discharge Activity: Resume usual activity Patient Instructions: Opioid Safety Discharge Attestations Time Spent in Discharge Care*: less than 30 min Quality Metrics Clinical Quality Measures [ No reported AMI, CVA or VTE this stay] Coding Level of Care Code Acute [facility] note Diagnoses ESRD (end stage renal disease) N18.6 Hyperkalemia E87.5
== END 2022-02-24 20:05 | disposition home or self-care (01) | DRG 640 ==
LOC: ER 14:19 → MEDSURG 14:46
PROVIDERS: Admitting Provider Family Medicine; Emergency Provider Family Medicine; PCP Anesthesiology Pain Medicine; Visit Provider Family Medicine
DX: E87.5 Hyperkalemia (principal); N18.6 End stage renal disease; Z94.4 Liver transplant status; D84.821 Immunodeficiency due to drugs; R25.2 Cramp and spasm; E11.22 Type 2 diabetes mellitus with diabetic chronic kidney disease; Z99.2 Dependence on renal dialysis; Z85.49 Personal history of malignant neoplasm of other male genital organs
CPT/HCPCS: 71045; 80053; 80061; 81001; 83735; 84443; 85025; 93005; 93971; 96361; 96374; 96375; 99285; J1644; J1815; J3490; J7030; J7040

== ENCOUNTER 2022-03-21 08:48 | Emergency (ER) | payer MEDICARE, SELFPAY ==
[2022-03-21 08:56] VITALS: BP 131/70; PULSE 89; RESP 16; TEMP 38.4; O2SAT 97; BMI 26.4
--- NOTE | 2022-03-21 09:06 | XR_ITS ---
WS: [id number] PORTABLE CHEST HISTORY: weakness, fever COMPARISON: 02/25/2020 Dual-lumen dialysis catheter through the RIGHT subclavian vein remains in good position. Mild haziness and venous congestion over both lungs. Slight elevation of the RIGHT hemidiaphragm. No consolidations. No pleural effusion or pneumothorax. Cardiac size: Normal. Mediastinum/Aorta: Mild atherosclerosis aorta. No osseous abnormality seen. XR/XR chest 1V portable [id number] IMPRESSION: 1. Very mild pulmonary congestion. No pneumonia. 2. No effusion.
--- NOTE | 2022-03-21 09:20 | ED_ITS ---
Documented by User: BLAKE Marshall 03/21/22 15:16 HPI - Weakness General: Chief complaint: Weakness Stated complaint: Shakey, Weakness all over Time Seen by Provider: 03/21/22 08:57 Source: patient and family () Mode of arrival: wheelchair Limitations: no limitations History of Present Illness: Patient is a nice 61-year-old male with a history of penile cancer, hepatitis C/liver cirrhosis resulting in liver transplant on tacrolimus, end-stage renal disease on MWF dialysis, and type 2 diabetes mellitus here along with his for concerns of feeling shaky and weak as well as muscle cramps. Patient tells me he has felt like this over the past 24 to 48 hours. He was supposed to receive dialysis this morning but has not. Upon arrival to the emergency department he was noted to be febrile at 101.1. He has not noticed fevers at home. He does not complain of pain anywhere apart from some chronic back pain that he states is at his baseline. He has no complaints of cough, congestion, shortness of breath, or difficulty breathing. He has no abdominal pains, vomiting, or changes in bowel movements. States he felt similar to this last month when he was seen here and admitted for hyperkalemia and emergent dialysis. Of note-patient did mention he was around his brother two weeks ago and brother later tested positive for COVID. MD Complaint: generalized weakness Onset (ago): day(s) Duration: constant Location: generalized Associated symptoms: Reports chills and fever(s); Denies chest pain, confusion, headache(s), nausea, syncope or vomiting Review of Systems 2 Const: Reports: fever(s), chills and fatigue; Denies: body aches Eyes: Denies: change in vision or blurry vision ENMT: Denies: throat pain, odynophagia, nasal discharge or nasal congestion Card: Denies: chest pain, palpitations, irregular heart rhythm, swelling of feet/ankles, lightheadedness, syncope, pre-syncope, dyspnea on exertion or orthopnea Resp: Denies: dyspnea, productive cough, non-productive cough, pain on inspiration, hemoptysis or chest congestion GI: Denies: abdominal pain, nausea, vomiting, diarrhea or change in bowel habits : Denies: flank pain Musc: Reports: back pain (chronic-at baseline); Denies: neck pain, extremity pain, extremity swelling, joint pain or joint swelling Skin/Breast: Denies: rash Neuro: Reports: involuntary movements (reports jerking - states these are fairly normal for him) and other (weakness, reports muscle cramps); Denies: headache(s), numbness in extremities, lack of coordination, difficulty walking, frequent falls, dizziness, vertigo, confusion, behavioral changes, Slurred speech present, difficulty communicating thoughts or seizure-like activity PFSH ED PFSH: Medical History History of end stage renal disease History of penile cancer Surgical History History of liver transplant Family History Father No problems noted. Mother Cancer Social History Smoking and tobacco status: never smoked Alcohol intake: never Physical Exam Const: COMMON NORMALS: no acute distress, patient oriented x3, no limitations, alert and well nourished GENERAL APPEARANCE: cooperative ORIENTATION/CONSCIOUSNESS: Yes awake, Yes oriented to person, Yes oriented to place and Yes oriented to time HENMT: COMMON NORMALS: normocephalic and atraumatic HEAD & SCALP: normal to inspection, normocephalic and atraumatic Eye: GENERAL EYE: appearance normal, both eyes and all related structures Neck/C-Spine: COMMON NORMALS: full ROM, no lymphadenopathy and no meningeal signs Resp: COMMON NORMALS: normal respiratory effort and clear to auscultation bilaterally AUSCULTATION: clear to auscultation bilaterally Cardio: COMMON NORMALS: regular rate and regular rhythm RATE: regular rate RHYTHM: regular rhythm GI: COMMON NORMALS: Normal to inspection, nondistended, normoactive bowel sounds present, Soft to palpation, non-tender and no masses INSPECTION: Yes scar (several previous abdominal scars) PALPATION: Yes Soft to palpation : COMMON NORMALS: Yes no CVA tenderness BLADDER/KIDNEY EXAM: Yes no CVA tenderness Back/Pelvis: COMMON NORMALS: no CVA tenderness Extremity: COMMON NORMALS: normal to inspection and full ROM GENERAL: Yes normal exam except as noted Neuro: LOLLY COMA SCALE: document GCS findings [place] coma scale eye opening: Spontaneous Lolly coma scale verbal response: Orientated [place] coma scale motor response: Obey commands Lolly coma scale total score: 15 COMMON NORMALS: patient oriented x3, moves all extremities, no focal motor deficits and no sensory deficits noted SENSORIUM/ORIENTATION: Yes alert, Yes oriented to person, Yes oriented to place and Yes oriented to time MENINGEAL SIGNS: Yes no meningeal signs SPEECH: speech normal Skin: COMMON NORMALS: no rashes or lesions noted GENERAL SKIN EXAM: no rashes or lesions noted Course Vital Signs: Vital signs: Vital Signs Temperature 101.1 F H 03/21/22 08:56 Pulse Rate 74 03/21/22 15:07 Respiratory Rate 18 03/21/22 15:07 Blood Pressure 131/73 03/21/22 15:07 Pulse Oximetry 91 03/21/22 15:07 MDM - Weakness Medical Decision Making Patient is a very nice 61-year-old male with extensive medical history here with his for concerns of generalized weakness. He was noted to be febrile upon arrival at 101.1. During history it did mention he was around a brother that later tested positive for COVID. Patient's rapid COVID did come back positive today. His blood work overall looks fairly benign. Despite him missing dialysis today he has a normal potassium. His creatinine is 1.7 which is lower than his baseline. CXR overall looks okay. He is got some very minor elevations to his LFTs was likely COVID related. Due to his ESRD/liver transplant status patient would not be a good candidate for outpatient Paxlovid or other PO antiviral therapies. I did speak to Dr. Harper who also consulted with Dr. Cook in regards to this and they agreed with this decision. We did contact pharmacy who stated they did have monoclonal antibody infusion available for treatment. I spoke to patient's liver transplant team at [facility] who stated they would like patient to have this and actually prefer this treatment in their liver transplant patients. I did speak to them in regards to his minor elevations in liver functions-they will order repeat testing of these. Unfortunately after he received infusion he did not have time to then go to his dialysis. We contacted his dialysis clinic who stated they do have an isolation room and can treat him with his COVID diagnosis. They were okay dialyzing him first thing on Saturday morning. I think this is acceptable based on his labs today. Dr. Harper aware of patient and agrees with plan, assessment, and treatment of patient. Strict return to ED precautions were given. Transplant team at [facility] stated they would reach out to patient tomorrow or Saturday for re- evaluation and repeat blood work. Lab Data : 03/21/22 10:17 03/21/22 10:17 Radiology Impressions Chest X-Ray 03/21/22 09:06 IMPRESSION: 1. Very mild pulmonary congestion. No pneumonia. 2. No effusion. Laboratory Results WBC 6.0 10^3/uL (4.0-10.0) 03/21/22 10:17 RBC 4.93 10^6/uL (4.1-5.3) 03/21/22 10:17 Hgb 14.1 g/dL (11.7-16.6) 03/21/22 10:17 Hct 40.8 % (42.0-52.0) L 03/21/22 10:17 MCV 82.8 fl (80-94) 03/21/22 10:17 MCH 28.6 pg (28.0-34.0) 03/21/22 10:17 MCHC 34.6 g/dL (30.0-36.0) 03/21/22 10:17 RDW 13.7 % (12.1-15.1) 03/21/22 10:17 Plt Count 228 10^3/cmm (130-400) 03/21/22 10:17 MPV 10.9 fL (7.4-10.4) H 03/21/22 10:17 Neut % (Auto) 76.4 % 03/21/22 10:17 Lymph % (Auto) 17.4 % 03/21/22 10:17 [place] % (Auto) 5.3 % 03/21/22 10:17 Eos % (Auto) 0.3 % 03/21/22 10:17 Baso % (Auto) 0.3 % 03/21/22 10:17 Neut # (Auto) 4.57 10^3/uL (1.8-7.7) 03/21/22 10:17 Lymph # (Auto) 1.0 10^3/uL (0.8-4.8) 03/21/22 10:17 [place] # (Auto) 0.3 10^3/uL (0.2-0.9) 03/21/22 10:17 Eos # (Auto) 0.0 10^3/uL (0.0-0.8) 03/21/22 10:17 Baso # (Auto) 0.0 10^3/uL (0.0-0.1) 03/21/22 10:17 Nucleated RBC % (auto) 0 % 03/21/22 10:17 Nucleated RBCs # 0.0 /100WBC 03/21/22 10:17 Sodium 138 mmol/L (136-145) 03/21/22 10:17 Potassium 3.5 mmol/L (3.5-5.1) 03/21/22 10:17 Chloride 99 mmol/L (98-107) 03/21/22 10:17 Carbon Dioxide 20 mmol/L (22-29) L 03/21/22 10:17 Anion Gap 22.5 (5-19) H 03/21/22 10:17 BUN 22 mg/dL (8-23) 03/21/22 10:17 Creatinine 1.7 mg/dL (0.7-1.2) H 03/21/22 10:17 GFR Calculation 40.9 mL/min (90-130) L 03/21/22 10:17 Glucose 164 mg/dL (65-115) H 03/21/22 10:17 Calculated Osmolality 293 mOsm/kg (285-295) 03/21/22 10:17 Lactic Acid 2.4 mmol/L (0.5-2.2) H 03/21/22 10:17 Lactic Acid (Sepsis) 1.2 mmol/L (0.5-2.2) 03/21/22 13:24 Calcium 9.2 mg/dL (8.5-10.5) 03/21/22 10:17 Magnesium 1.9 mg/dL (1.7-2.3) 03/21/22 10:17 Total Bilirubin 1.2 mg/dL (0.15-1.2) 03/21/22 10:17 AST 54 U/L (0-40) H 03/21/22 10:17 ALT 104 U/L (0-41) H 03/21/22 10:17 Alkaline Phosphatase 75 IU/L (40-130) 03/21/22 10:17 Total Protein 7.5 g/dL (6.6-8.7) 03/21/22 10:17 Albumin 4.3 g/dL (3.5-5.2) 03/21/22 10:17 Globulin 3.2 g/dL (1.3-4.6) 03/21/22 10:17 SARS-CoV-2 Ag (Rapid) Positive (Negative) H 03/21/22 11:13 Discharge Plan Discharge Patient Disposition: Home Clinical Impression: Liver transplant status, ESRD on hemodialysis, COVID-19 Condition: Stable Prescriptions: New dexamethasone 6 mg tablet 6 mg PO DAILY Qty: 6 0RF No Action carvedilol 25 mg tablet 25 mg PO BID 0RF amlodipine 5 mg tablet 2.5 mg PO DAILY 0RF furosemide 80 mg tablet 80 mg PO BID 0RF pantoprazole 40 mg tablet,delayed release (DR/EC) 40 mg PO DAILY 0RF gabapentin 300 mg capsule 600 mg PO TID PRN (Reason: Pain) 0RF metolazone 10 mg tablet 10 mg PO TID 0RF fluticasone propionate 50 mcg/actuation spray,suspension 1 spray INTRANASAL DAILY 0RF tacrolimus 1 mg capsule 2 mg PO BID 0RF oxycodone 5 mg tablet 5 - 10 mg PO Q4H PRN (Reason: Pain) 0RF calcium acetate(phosphat bind) 667 mg capsule See Rx Instructions .ROUTE .COMPLEX 0RF Rx Instructions: TAKE TWO TABS WITH MEALS AND ONE TAB WITH SNACKS insulin glargine [Basaglar KwikPen U-100 Insulin] 100 unit/mL (3 mL) insulin pen 35 unit SUBCUT DAILY 0RF oxycodone [OxyContin] 10 mg tablet,oral only,ext.rel.12 hr 10 mg PO DAILY 0RF Novolog Flexpen U-100 Insulin 100 unit/mL (3 mL) insulin pen See Rx Instructions .ROUTE .COMPLEX 0RF Rx Instructions: PER SLIDING SCALE - UP TO 45 UNITS Aspir-81 81 mg Tablet,Delayed Release (Dr/Ec) 81 mg PO DAILY 0RF Miralax 17 gram/dose Powder 4 g PO DAILY PRN (Reason: Constipation) 0RF DOK 100 mg Tablet 100 mg PO BID 0RF Discharge Orders: Discharge ED (Routine); Ordered 03/21/22 Ordered By: Stephanie Zacarias Referrals: Robert Sanchez MD [Primary Care Provider] - Patient Instructions: COVID-19 (Coronavirus Disease 2019) (ED) Activity Restrictions/Additional Instructions: As we discussed make sure you attend your dialysis Saturday morning at 7 AM when you are scheduled. You should hear from your liver transplant team tomorrow or Saturday for a follow-up and to schedule repeat lab draw. You need to return to the emergency department for chest pain, shortness of breath, difficulty b reathing, signs of fluid overload such as inability to lie flat, difficulty breathing, or swelling to your legs. Coding Level of Care Code ED Cupola Patcher Helper for Chg Fwd Exam Comprehensive Documented by User: Costa Harper DO 03/22/22 08:05 HPI - Weakness General: Chief complaint: Weakness Stated complaint: Shakey, Weakness all over Time Seen by Provider: 03/21/22 08:57 PFSH ED PFSH: Medical History History of end stage renal disease History of penile cancer Surgical History History of liver transplant Family History Father No problems noted. Mother Cancer Social History Smoking and tobacco status: never smoked Alcohol intake: never Physical Exam Neuro: LOLLY COMA SCALE: document GCS findings Lolly coma scale total score: 15 Course 2 Vital Signs: Vital signs: Vital Signs Temperature 101.1 F H 03/21/22 08:56 Pulse Rate 74 03/21/22 15:07 Respiratory Rate 18 03/21/22 15:07 Blood Pressure 131/73 03/21/22 15:07 Pulse Oximetry 91 03/21/22 15:07 MDM - Weakness Medical Decision Making Patient is a very nice 61-year-old male with extensive medical history here with his for concerns of generalized weakness. He was noted to be febrile upon arrival at 101.1. During history it did mention he was around a brother that later tested positive for COVID. Patient's rapid COVID did come back positive today. His blood work overall looks fairly benign. Despite him missing dialysis today he has a normal potassium. His creatinine is 1.7 which is lower than his baseline. CXR overall looks okay. He is got some very minor elevations to his LFTs was likely COVID related. Due to his ESRD/liver transplant status patient would not be a good candidate for outpatient Paxlovid or other PO antiviral therapies. I did speak to Dr. Harper who also consulted with Dr. Cook in regards to this and they agreed with this decision. We did contact pharmacy who stated they did have monoclonal antibody infusion available for treatment. I spoke to patient's liver transplant team at [facility] who stated they would like patient to have this and actually prefer this treatment in their liver transplant patients. I did speak to them in regards to his minor elevations in liver functions-they will order repeat testing of these. Unfortunately after he received infusion he did not have time to then go to his dialysis. We contacted his dialysis clinic who stated they do have an isolation room and can treat him with his COVID diagnosis. They were okay dialyzing him first thing on Saturday morning. I think this is acceptable based on his labs today. Dr. Harper aware of patient and agrees with plan, assessment, and treatment of patient. Strict return to ED precautions were given. Transplant team at [facility] stated they would reach out to patient tomorrow or Saturday for re- evaluation and repeat blood work. Chart reviewed and patient discussed with midlevel. Agree with assessment and plan. Lab Data : 03/21/22 10:17 03/21/22 10:17 Radiology Impressions Chest X-Ray 03/21/22 09:06 IMPRESSION: 1. Very mild pulmonary congestion. No pneumonia. 2. No effusion. Laboratory Results WBC 6.0 10^3/uL (4.0-10.0) 03/21/22 10:17 RBC 4.93 10^6/uL (4.1-5.3) 03/21/22 10:17 Hgb 14.1 g/dL (11.7-16.6) 03/21/22 10:17 Hct 40.8 % (42.0-52.0) L 03/21/22 10:17 MCV 82.8 fl (80-94) 03/21/22 10:17 MCH 28.6 pg (28.0-34.0) 03/21/22 10:17 MCHC 34.6 g/dL (30.0-36.0) 03/21/22 10:17 RDW 13.7 % (12.1-15.1) 03/21/22 10:17 Plt Count 228 10^3/cmm (130-400) 03/21/22 10:17 MPV 10.9 fL (7.4-10.4) H 03/21/22 10:17 Neut % (Auto) 76.4 % 03/21/22 10:17 Lymph % (Auto) 17.4 % 03/21/22 10:17 [place] % (Auto) 5.3 % 03/21/22 10:17 Eos % (Auto) 0.3 % 03/21/22 10:17 Baso % (Auto) 0.3 % 03/21/22 10:17 Neut # (Auto) 4.57 10^3/uL (1.8-7.7) 03/21/22 10:17 Lymph # (Auto) 1.0 10^3/uL (0.8-4.8) 03/21/22 10:17 [place] # (Auto) 0.3 10^3/uL (0.2-0.9) 03/21/22 10:17 Eos # (Auto) 0.0 10^3/uL (0.0-0.8) 03/21/22 10:17 Baso # (Auto) 0.0 10^3/uL (0.0-0.1) 03/21/22 10:17 Nucleated RBC % (auto) 0 % 03/21/22 10:17 Nucleated RBCs # 0.0 /100WBC 03/21/22 10:17 Sodium 138 mmol/L (136-145) 03/21/22 10:17 Potassium 3.5 mmol/L (3.5-5.1) 03/21/22 10:17 Chloride 99 mmol/L (98-107) 03/21/22 10:17 Carbon Dioxide 20 mmol/L (22-29) L 03/21/22 10:17 Anion Gap 22.5 (5-19) H 03/21/22 10:17 BUN 22 mg/dL (8-23) 03/21/22 10:17 Creatinine 1.7 mg/dL (0.7-1.2) H 03/21/22 10:17 GFR Calculation 40.9 mL/min (90-130) L 03/21/22 10:17 Glucose 164 mg/dL (65-115) H 03/21/22 10:17 Calculated Osmolality 293 mOsm/kg (285-295) 03/21/22 10:17 Lactic Acid 2.4 mmol/L (0.5-2.2) H 03/21/22 10:17 Lactic Acid (Sepsis) 1.2 mmol/L (0.5-2.2) 03/21/22 13:24 Calcium 9.2 mg/dL (8.5-10.5) 03/21/22 10:17 Magnesium 1.9 mg/dL (1.7-2.3) 03/21/22 10:17 Total Bilirubin 1.2 mg/dL (0.15-1.2) 03/21/22 10:17 AST 54 U/L (0-40) H 03/21/22 10:17 ALT 104 U/L (0-41) H 03/21/22 10:17 Alkaline Phosphatase 75 IU/L (40-130) 03/21/22 10:17 Total Protein 7.5 g/dL (6.6-8.7) 03/21/22 10:17 Albumin 4.3 g/dL (3.5-5.2) 03/21/22 10:17 Globulin 3.2 g/dL (1.3-4.6) 03/21/22 10:17 SARS-CoV-2 Ag (Rapid) Positive (Negative) H 03/21/22 11:13 Discharge Plan Discharge Patient Disposition: Home Clinical Impression: Liver transplant status, ESRD on hemodialysis, COVID-19 Condition: Stable Prescriptions: New dexamethasone 6 mg tablet 6 mg PO DAILY Qty: 6 0RF No Action carvedilol 25 mg tablet 25 mg PO BID 0RF amlodipine 5 mg tablet 2.5 mg PO DAILY 0RF furosemide 80 mg tablet 80 mg PO BID 0RF pantoprazole 40 mg tablet,delayed release (DR/EC) 40 mg PO DAILY 0RF gabapentin 300 mg capsule 600 mg PO TID PRN (Reason: Pain) 0RF metolazone 10 mg tablet 10 mg PO TID 0RF fluticasone propionate 50 mcg/actuation spray,suspension 1 spray INTRANASAL DAILY 0RF tacrolimus 1 mg capsule 2 mg PO BID 0RF oxycodone 5 mg tablet 5 - 10 mg PO Q4H PRN (Reason: Pain) 0RF calcium acetate(phosphat bind) 667 mg capsule See Rx Instructions .ROUTE .COMPLEX 0RF Rx Instructions: TAKE TWO TABS WITH MEALS AND ONE TAB WITH SNACKS insulin glargine [Basaglar KwikPen U-100 Insulin] 100 unit/mL (3 mL) insulin pen 35 unit SUBCUT DAILY 0RF oxycodone [OxyContin] 10 mg tablet,oral only,ext.rel.12 hr 10 mg PO DAILY 0RF Novolog Flexpen U-100 Insulin 100 unit/mL (3 mL) insulin pen See Rx Instructions .ROUTE .COMPLEX 0RF Rx Instructions: PER SLIDING SCALE - UP TO 45 UNITS Aspir-81 81 mg Tablet,Delayed Release (Dr/Ec) 81 mg PO DAILY 0RF Miralax 17 gram/dose Powder 4 g PO DAILY PRN (Reason: Constipation) 0RF DOK 100 mg Tablet 100 mg PO BID 0RF Discharge Orders: Discharge ED (Routine); Ordered 03/21/22 Ordered By: Stephanie Zacarias Referrals: Robert Sanchez MD [Primary Care Provider] - Patient Instructions: COVID-19 (Coronavirus Disease 2019) (ED) Activity Restrictions/Additional Instructions: As we discussed make sure you attend your dialysis Saturday morning at 7 AM when you are scheduled. You should hear from your liver transplant team tomorrow or Saturday for a follow-up and to schedule repeat lab draw. You need to return to the emergency department for chest pain, shortness of breath, difficulty breathing, signs of fluid overload such as inability to lie flat, difficulty breathing, or swelling to your legs. Coding Level of Care Code ED Cupola Patcher Helper for Dallin Fwd Exam Comprehensive
[2022-03-21] MEDS: acetaminophen 500 mg Tablet 1000 MG PO (10:16)
[2022-03-21 10:24] LABS: Basophils % 0.3 %; Eosinophils % 0.3 %; Hematocrit 40.8 % (42.0-52.0); Hemoglobin 14.1 g/dL (11.7-16.6); Lymphocytes % 17.4 %; Mean Corpuscular HGB Conc 34.6 g/dL (30.0-36.0); Mean Corpuscular Hemoglobin 28.6 pg (28.0-34.0); Mean Corpuscular Volume 82.8 fl (80-94); Mean Platelet Volume 10.9 fL (7.4-10.4); Monocytes # 0.3 10^3/uL (0.2-0.9); Monocytes % 5.3 %; Neutrophils # 4.57 10^3/uL (1.8-7.7); Neutrophils % 76.4 %; Nucleated Red Blood Cells % 0 %; Platelet Count 228 10^3/cmm (130-400); Red Blood Count 4.93 10^6/uL (4.1-5.3); Red Cell Distribution Width 13.7 % (12.1-15.1)
--- NOTE | 2022-03-21 10:26 | ECG_ITS ---
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 Measurements Intervals Industry Rate: 72 P: 22 W[place]: 163 QRS: 67 QRSD: 90 T: 71 QT: 370 QTc: 405 Interpretive Statements SINUS RHYTHM Compared to ECG 02/24/2022 10:40:13 No significant changes Electronically Signed On 03-22-2022 22:45:42 CDT by Heather Monaco M.D. [id number]
[2022-03-21 10:48] LABS: Lactic Sepsis W/Reflex 2.4 mmol/L (0.5-2.2)
[2022-03-21 10:49] LABS: Alanine Aminotransferase 104 U/L (0-41); Albumin Level 4.3 g/dL (3.5-5.2); Alkaline Phosphatase 75 IU/L (40-130); Anion Gap 22.5 (5-19); Aspartate Amino Transferase 54 U/L (0-40); Blood Urea Nitrogen 22 mg/dL (8-23); Calcium 9.2 mg/dL (8.5-10.5); Carbon Dioxide 20 mmol/L (22-29); Chloride 99 mmol/L (98-107); Globulin 3.2 g/dL (1.3-4.6); Glomerular Filtration Rate 40.9 mL/min (90-130); Glucose 164 mg/dL (65-115); Magnesium 1.9 mg/dL (1.7-2.3); Osmolality Calculated 293 mOsm/kg (285-295); Potassium 3.5 mmol/L (3.5-5.1); Sodium 138 mmol/L (136-145); Total Bilirubin 1.2 mg/dL (0.15-1.2); Total Protein 7.5 g/dL (6.6-8.7)
[2022-03-21 11:38] LABS: SARS Covid-2 Antigen Positive (Negative)
[2022-03-21 12:08] LABS: Reflex Lactate Order REFLEX LACTIC ORDERD
[2022-03-21 13:48] LABS: Lactic Acid level (Lactate) 1.2 mmol/L (0.5-2.2)
[2022-03-21 15:07] VITALS: BP 131/73; PULSE 74; RESP 18; O2SAT 91
--- NOTE | 2022-03-21 15:13 | ECG_ITS ---
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 Measurements Intervals [place] Rate: 77 P: 21 [place]: 170 QRS: 51 QRSD: 91 T: 62 QT: 361 QTc: 411 Interpretive Statements SINUS RHYTHM Compared to ECG 02/24/2022 10:40:13 No significant changes Electronically Signed On 03-21-2022 23:46:39 CDT by Heather Monaco M.D. [id number] f
[2022-03-22 17:52] LABS: Quest SARS-CoV-2 RNA DETECTED (NOT DETECTED)
--- NOTE | 2022-03-23 09:40 | PC.NURSE ---
pt notified of postive covid result
== END 2022-03-21 15:26 | disposition home or self-care (01) ==
PROVIDERS: Emergency Provider Physician Assistant; PCP Anesthesiology Pain Medicine
DX: U07.1 COVID-19 (principal); Z94.4 Liver transplant status; E11.22 Type 2 diabetes mellitus with diabetic chronic kidney disease; N18.6 End stage renal disease; Z99.2 Dependence on renal dialysis; Z79.82 Long term (current) use of aspirin; Z79.4 Long term (current) use of insulin; Z85.49 Personal history of malignant neoplasm of other male genital organs; Z86.19 Personal history of other infectious and parasitic diseases
CPT/HCPCS: 36415; 71045; 80053; 83605; 83735; 85025; 87040; 87426; 87635; 93005; 99285

== ENCOUNTER 2022-06-09 22:18 | Emergency (ER) | payer MEDICARE, SELFPAY ==
[2022-06-09 22:20] VITALS: BP 171/86; PULSE 120; RESP 16; TEMP 37.6; O2SAT 92
[2022-06-10] VITALS (7 sets, daily range): BP systolic 127–149; BP diastolic 66–80; PULSE 80–95; RESP 15–22; TEMP 37.5; O2SAT 88–94
[2022-06-10 00:38] LABS: Lactic Sepsis W/Reflex 1.7 mmol/L (0.5-2.2)
--- NOTE | 2022-06-10 00:54 | XRR_ITS ---
PROCEDURE INFORMATION: Exam: XR Chest Exam date and time: 06/10/2022 1:05 AM Age: 62 years old Clinical indication: Fever; Prior surgery; Surgery date: 6+ months; Surgery type: Dialysis port; Additional info: Fever, AMS TECHNIQUE: Imaging protocol: Radiologic exam of the chest. Views: 1 view. COMPARISON: CR XR chest 1V portable [id number] 03/21/2022 9:19 AM FINDINGS: Tubes, catheters and devices: A dialysis catheter is placed via the right internal jugular vein with its tip at the level of the right atrium. Lungs: There are some strandy opacities present in the lung bases bilaterally likely representing atelectasis versus parenchymal or pleural scarring. Some subtle hazy and linear opacities are present in the left lower hemithorax possibly representing atelectasis although left pneumonitis can't be entirely excluded. Pleural spaces: See Lungs finding. Heart/Mediastinum: Unremarkable. No cardiomegaly. Bones/joints: Unremarkable. XR/XR chest 1V portable [id number] IMPRESSION: 1. Strandy opacities in lung bases likely represents atelectasis versus parenchymal or pleural scarring. 2. Subtle hazy and linear opacities are seen in the left lower hemithorax possibly representing atelectasis as well although a left pneumonitis cannot be excluded.
[2022-06-10 01:10] LABS: Basophils % 0.3 %; Eosinophils # 0.1 10^3/uL (0.0-0.8); Eosinophils % 1.7 %; Hematocrit 32.9 % (42.0-52.0); Hemoglobin 11.1 g/dL (11.7-16.6); Lymphocytes # 0.4 10^3/uL (0.8-4.8); Lymphocytes % 5.1 %; Mean Corpuscular HGB Conc 33.7 g/dL (30.0-36.0); Mean Corpuscular Hemoglobin 31.1 pg (28.0-34.0); Mean Corpuscular Volume 92.2 fl (80-94); Mean Platelet Volume 10.7 fL (7.4-10.4); Monocytes # 0.4 10^3/uL (0.2-0.9); Monocytes % 6.3 %; Neutrophils # 6.07 10^3/uL (1.8-7.7); Neutrophils % 86.2 %; Nucleated Red Blood Cells % 0 %; Platelet Count 70 10^3/cmm (130-400); Red Blood Count 3.57 10^6/uL (4.1-5.3); Red Cell Distribution Width 13.3 % (12.1-15.1)
[2022-06-10 01:13] LABS: Alanine Aminotransferase 15 U/L (0-41); Alkaline Phosphatase 113 U/L (40-130); Anion Gap 17.6 (5-19); Aspartate Amino Transferase 13 U/L (0-40); Blood Urea Nitrogen 47 mg/dL (8-23); Calcium 9.1 mg/dL (8.5-10.5); Carbon Dioxide 28 mmol/L (22-29); Chloride 92 mmol/L (98-107); Globulin 3.6 g/dL (1.3-4.6); Glomerular Filtration Rate 9.2 mL/min (90-130); Glucose 229 mg/dL (65-115); Magnesium 1.9 mg/dL (1.7-2.3); Osmolality Calculated 294 mOsm/kg (285-295); Phosphorus 4.3 mg/dL (2.5-4.5); Potassium 5.6 mmol/L (3.5-5.1); Sodium 132 mmol/L (136-145); Total Bilirubin 0.4 mg/dL (0.15-1.2); Total Protein 7.6 g/dL (6.6-8.7)
[2022-06-10 01:58] LABS: Bilirubin Urine Negative (Negative); Glucose Urine UA Negative (Normal); Ketones Urine Negative (Negative); Leukocyte Esterase Urine Negative (Negative); Nitrate Urine Negative; Protein Urine 2+; Urine Appearance Clear (CLEAR); Urine Color Yellow (Yellow); Urobilinogen Urine 0.2 mg/dL (Negative)
[2022-06-10 02:09] LABS: Add Urine Microscopic? YES; Blood Urine 1+ (Negative)
[2022-06-10 02:16] LABS: Add Urine Culture? No; Bacteria Urine TRACE /hpf; RBC Urine 0-4 /hpf (0-2); Squamous Epithelial Cell Urine 0-4 /hpf (0-5); WBC Urine 0-4 /hpf (0-5)
--- NOTE | 2022-06-10 04:23 | ED_ITS ---
HPI - General Adult General: Chief complaint: General Medical Stated complaint: Diaylsis-Shaking\Confused Time Seen by Provider: 06/10/22 00:42 History of Present Illness: 62-year-old male gentleman with a dialysis port in the right chest. He has been doing dialysis on his own at home. After dialysis this evening, he appeared quite confused and lethargic to his . This was a transient confusion, and is now essentially resolved. She noticed that he felt warm. He had a 99.5 temperature. No other symptoms. No vomiting. No cough. No sick contacts. The patient had COVID in March. He has had no problems or oozing from his dialysis port. PFSH ED PFSH: Medical History History of end stage renal disease History of penile cancer Surgical History History of liver transplant Family History Father No problems noted. Mother Cancer Social History Smoking and tobacco status: never smoked Alcohol intake: never Course Vital Signs: Vital signs: Vital Signs Temperature 99.5 F 06/10/22 00:16 Pulse Rate 89 06/10/22 03:26 Respiratory Rate 22 H 06/10/22 03:26 Blood Pressure 140/71 06/10/22 03:26 Pulse Oximetry 91 06/10/22 03:26 Oxygen Delivery Me thod 06/10/22 00:16 MDM - General Adult Medical Decision Making The patient's confusion was resolved on arrival. He is acting essentially normally at this point. His BUN is 47, creatinine 6.2 his potassium is 5.6. He notes that these numbers are not abnormal for him. His potassium is always high as well as his creatinine he says. His hemoglobin is 11.1. Other laboratory is benign. Chest x-ray is read as opacities in the lung bases and left lower hemithorax likely representing atelectasis. His white blood cell count is 7. His CRP is only 11. He has no source of fever that is clear. He does not have a urinary tract infection. His COVID PCR is pending, although he had COVID in March and likely does not have this again. His temperature is only 99.5. He does have tick bites he says. A tick panel will be sent. With resolution of his symptoms, and a temperature of only 99.5 with normal white count, we will allow home for close observation. Lab Data : 06/10/22 00:10 06/10/22 00:48 Radiology Impressions Chest X-Ray 06/10/22 00:54 IMPRESSION: 1. Strandy opacities in lung bases likely represents atelectasis versus parenchymal or pleural scarring. 2. Subtle hazy and linear opacities are seen in the left lower hemithorax possibly representing atelectasis as well although a left pneumonitis cannot be excluded. Laboratory Results WBC 7.0 10^3/uL (4.0-10.0) 06/10/22 00:10 RBC 3.57 10^6/uL (4.1-5.3) L 06/10/22 00:10 Hgb 11.1 g/dL (11.7-16.6) L 06/10/22 00:10 Hct 32.9 % (42.0-52.0) L 06/10/22 00:10 MCV 92.2 fl (80-94) 06/10/22 00:10 MCH 31.1 pg (28.0-34.0) 06/10/22 00:10 MCHC 33.7 g/dL (30.0-36.0) 06/10/22 00:10 RDW 13.3 % (12.1-15.1) 06/10/22 00:10 Plt Count 70 10^3/cmm (130-400) L 06/10/22 00:10 MPV 10.7 fL (7.4-10.4) H 06/10/22 00:10 Neut % (Auto) 86.2 % 06/10/22 00:10 Lymph % (Auto) 5.1 % 06/10/22 00:10 Castro % (Auto) 6.3 % 06/10/22 00:10 Eos % (Auto) 1.7 % 06/10/22 00:10 Baso % (Auto) 0.3 % 06/10/22 00:10 Neut # (Auto) 6.07 10^3/uL (1.8-7.7) 06/10/22 00:10 Lymph # (Auto) 0.4 10^3/uL (0.8-4.8) L 06/10/22 00:10 [place] # (Auto) 0.4 10^3/uL (0.2-0.9) 06/10/22 00:10 Eos # (Auto) 0.1 10^3/uL (0.0-0.8) 06/10/22 00:10 Baso # (Auto) 0.0 10^3/uL (0.0-0.1) 06/10/22 00:10 Nucleated RBC % (auto) 0 % 06/10/22 00:10 Nucleated RBCs # 0.0 /100WBC 06/10/22 00:10 Sodium 132 mmol/L (136-145) L 06/10/22 00:48 Potassium 5.6 mmol/L (3.5-5.1) H 06/10/22 00:48 Chloride 92 mmol/L (98-107) L 06/10/22 00:48 Carbon Dioxide 28 mmol/L (22-29) 06/10/22 00:48 Anion Gap 17.6 (5-19) 06/10/22 00:48 BUN 47 mg/dL (8-23) H 06/10/22 00:48 Creatinine 6.2 mg/dL (0.7-1.2) H* 06/10/22 00:48 GFR Calculation 9.2 mL/min (90-130) L 06/10/22 00:48 Glucose 229 mg/dL (65-115) H 06/10/22 00:48 Calculated Osmolality 294 mOsm/kg (285-295) 06/10/22 00:48 Lactic Acid 1.7 mmol/L (0.5-2.2) 06/09/22 00:10 Calcium 9.1 mg/dL (8.5-10.5) 06/10/22 00:48 Phosphorus 4.3 mg/dL (2.5-4.5) 06/10/22 00:48 Magnesium 1.9 mg/dL (1.7-2.3) 06/10/22 00:48 Total Bilirubin 0.4 mg/dL (0.15-1.2) 06/10/22 00:48 AST 13 U/L (0-40) 06/10/22 00:48 ALT 15 U/L (0-41) 06/10/22 00:48 Alkaline Phosphatase 113 U/L (40-130) 06/10/22 00:48 C-Reactive Protein 11.0 mg/L (0.0-4.9) H 06/10/22 00:48 Total Protein 7.6 g/dL (6.6-8.7) 06/10/22 00:48 Albumin 4.0 g/dL (3.5-5.2) 06/10/22 00:48 Globulin 3.6 g/dL (1.3-4.6) 06/10/22 00:48 Urine Color Yellow (Yellow) 06/10/22 01:46 Urine Appearance Clear (CLEAR) 06/10/22 01:46 Urine pH 7.0 (5-7) 06/10/22 01:46 Ur Specific [place] 1.020 (1.005-1.030) 06/10/22 01:46 Urine Protein 2+ 06/10/22 01:46 Urine Glucose (UA) Negative (Normal) 06/10/22 01:46 Urine Ketones Negative (Negative) 06/10/22 01:46 Urine Blood 1+ (Negative) A 06/10/22 01:46 Urine Nitrate Negative 06/10/22 01:46 Urine Bilirubin Negative (Negative) 06/10/22 01:46 Urine Urobilinogen 0.2 mg/dL (Negative) 06/10/22 01:46 Ur Leukocyte Esterase Negative (Negative) 06/10/22 01:46 Urine RBC 0-4 /hpf (0-2) H 06/10/22 01:46 Urine WBC 0-4 /hpf (0-5) H 06/10/22 01:46 Ur Squamous Epith Cells 0-4 /hpf (0-5) H 06/10/22 01:46 Amorphous Sediment Not Reportable 06/10/22 01:46 Urine Bacteria Trace /hpf (NONE) 06/10/22 01:46 Discharge Plan Discharge Patient Disposition: Home Clinical Impression: Acute alteration in mental status, Fever, unknown origin Condition: Stable Prescriptions: No Action carvedilol 25 mg tablet 25 mg PO BID amlodipine 5 mg tablet 2.5 mg PO DAILY furosemide 80 mg tablet 80 mg PO BID pantoprazole 40 mg tablet,delayed release (DR/EC) 40 mg PO DAILY gabapentin 300 mg capsule 600 mg PO TID PRN (Reason: Pain) metolazone 10 mg tablet 10 mg PO TID fluticasone propionate 50 mcg/actuation spray,suspension 1 spray INTRANASAL DAILY tacrolimus 1 mg capsule 2 mg PO BID oxycodone 5 mg tablet 5 - 10 mg PO Q4H PRN (Reason: Pain) calcium acetate(phosphat bind) 667 mg capsule See Rx Instructions .ROUTE .COMPLEX Rx Instructions: TAKE TWO TABS WITH MEALS AND ONE TAB WITH SNACKS insulin glargine [Basaglar KwikPen U-100 Insulin] 100 unit/mL (3 mL) insulin pen 35 unit SUBCUT DAILY oxycodone [OxyContin] 10 mg tablet,oral only,ext.rel.12 hr 10 mg PO DAILY Novolog Flexpen U-100 Insulin 100 unit/mL (3 mL) insulin pen See Rx Instructions .ROUTE .COMPLEX Rx Instructions: PER SLIDING SCALE - UP TO 45 UNITS Aspir-81 81 mg Tablet,Delayed Release (Dr/Ec) 81 mg PO DAILY Miralax 17 gram/dose Powder 4 g PO DAILY PRN (Reason: Constipation) DOK 100 mg Tablet 100 mg PO BID dexamethasone 6 mg tablet 6 mg PO DAILY Qty: 6 0RF Discharge Orders: Discharge ED (Routine); Ordered 06/10/22 Ordered By: Julio Cesar Davis Referrals: Robert Sanchez MD [Primary Care Provider] - Patient Instructions: Fever in Adults (ED), Altered Mental Status (ED), Opioid Safety, Pain Management Activity Restrictions/Additional Instructions: Call for the results of your COVID swab later today. Monitor temperature closely for the next 48 hours, at least twice a day. Return for any worsening mental status, shortness of breath, any other concerns. Follow-up with your doctor on Saturday. Coding Level of Care Code ED [employer] for [employer]allin Florentino
[2022-06-10 04:56] LABS: Adenovirus Not Detected (NOT DETECT); Chlamydia Pneumoniae Not Detected (NOT DETECT); Coronavirus 229E,HKU1,NL63,OC4 Not Detected (NOT DETECT); Human Metapneumovirus Not Detected (NOT DETECT); Human Rhinovirus/Enterovirus Not Detected (NOT DETECT); Influenza A Not Detected (NOT DETECT); Influenza A H1 Not Detected (NOT DETECT); Influenza A H1-2009 Not Detected (NOT DETECT); Influenza A H3 Not Detected (NOT DETECT); Influenza B Not Detected (NOT DETECT); Mycoplasma Pneumoniae Not Detected (NOT DETECT); Parainfluenza Virus Type 1 Not Detected (NOT DETECT); Parainfluenza Virus Type 2 Not Detected (NOT DETECT); Parainfluenza Virus Type 3 Not Detected (NOT DETECT); Parainfluenza Virus Type 4 Not Detected (NOT DETECT); Respiratory Syncytial Virus A Not Detected (NOT DETECT); Respiratory Syncytial Virus B Not Detected (NOT DETECT); SARS-COV-2 Not Detected (NOT DETECT)
== END 2022-06-10 03:28 | disposition home or self-care (01) ==
PROVIDERS: Emergency Provider Emergency Medicine; PCP Anesthesiology Pain Medicine
DX: R41.82 Altered mental status, unspecified (principal); R50.9 Fever, unspecified; Z79.82 Long term (current) use of aspirin; Z79.4 Long term (current) use of insulin; N18.6 End stage renal disease; Z99.2 Dependence on renal dialysis; Z94.4 Liver transplant status; Z85.49 Personal history of malignant neoplasm of other male genital organs; Z20.822 Contact with and (suspected) exposure to COVID-19
CPT/HCPCS: 71045; 80053; 81001; 83605; 83735; 84100; 85025; 86140; 87040; 87635; 99284

== ENCOUNTER 2024-02-13 08:50 | Outpatient (CLI) | payer MEDICARE, SELFPAY ==
--- NOTE | 2024-02-13 08:59 | XR_ITS ---
WS: [id number] XR chest 2V* [id number] REASON FOR EXAM: ?TUBERCULOSIS FINDINGS: The chest is relatively unchanged compared to 06/10/2022. There is mild tortuosity of the thoracic aorta. The heart size is within normal limits. There is calcified granulomatous disease in both hemithoraces. Mild thickening of the pleura and the minor fissure on the right. Chronic reticular interstitial lung opacities in both lower lung abernathy. No acute pulmonary parenchymal or pleural abnormality is identified. Mild degenerative spondylosis in the mid and lower thoracic spine. XR/XR chest 2V* [id number] IMPRESSION: Stable chest with no acute abnormality.
== END 2024-02-13 08:51 | disposition home or self-care (01) ==
LOC: RAD 08:55
PROVIDERS: PCP Anesthesiology Pain Medicine; Visit Provider Internal Medicine Nephrology
DX: Z11.1 Encounter for screening for respiratory tuberculosis (principal); I77.89 Other specified disorders of arteries and arterioles; R91.8 Other nonspecific abnormal finding of lung field; M47.814 Spondylosis without myelopathy or radiculopathy, thoracic region
CPT/HCPCS: 71046

== ENCOUNTER 2024-06-18 10:01 | Outpatient (CLI) | payer MEDICARE, SELFPAY ==
--- NOTE | 2024-06-18 10:10 | XR_ITS ---
WS: [id number] XR chest 2V* [id number] REASON FOR EXAM: ?TB/ESRD FINDINGS: With the exception of interval placement of a dorsal column stimulator overlying the mid thoracic spi ne, the chest is unchanged. Mild tortuosity of the thoracic aorta. Normal heart size. Calcified granulomas disease in both hemithoraces. No focal lung lesion. The lungs are hyperexpanded. There are coarse reticular interstitial lung opacities with multiple angie encies indicating severe central lobar emphysema with honeycombing. XR/XR chest 2V* [id number] IMPRESSION: Stable abnormal chest without acute abnormality. Significant obstructive lung disease.
== END 2024-06-18 10:02 | disposition home or self-care (01) ==
LOC: RAD 10:07
PROVIDERS: PCP Internal Medicine; Visit Provider Internal Medicine Nephrology
DX: N18.6 End stage renal disease (principal); J44.9 Chronic obstructive pulmonary disease, unspecified
CPT/HCPCS: 71046

== ENCOUNTER 2025-02-16 15:20 | Outpatient (CLI) | payer MEDICARE, SELFPAY ==
--- NOTE | 2025-02-16 15:40 | XRR_ITS ---
PROCEDURE INFORMATION: Exam: XR Chest Exam date and time: 02/16/2025 3:50 PM Age: 64 years old Clinical indication: Screening exam; Other screening; Prior surgery; Surgery date: 6+ months; Surgery type: Liver transplant, spinal cord stimulator; Additional info: Screening fro tuberculosis, spoke to [facility] TECHNIQUE: Imaging protocol: Radiologic exam of the chest. Views: 2 views. COMPARISON: CR XR chest 2V* [id number] 06/18/2024 10:15 AM FINDINGS: Tubes, catheters and devices: Stable position of a dorsal column stimulator overlying the midthoracic spine. Lungs: Lungs are hyperinflated. Coarse reticular interstitial lung opacities with multiple lucencies indicative of centrilobular emphysema, unchanged. No focal consolidation. Pleural spaces: Unremarkable. No pleural effusion. No pneumothorax. Heart/Mediastinum: No cardiomegaly. Vasculature: Mild tortuosity of thoracic aorta. Bones/joints: Unremarkable. XR/XR chest 2V* [id number] IMPRESSION: No acute cardiopulmonary findings. Stable appearance of the chest.
== END 2025-02-16 15:21 | disposition home or self-care (01) ==
PROVIDERS: PCP Internal Medicine; Visit Provider Internal Medicine Nephrology
DX: Z11.1 Encounter for screening for respiratory tuberculosis (principal); Z96.89 Presence of other specified functional implants; R91.8 Other nonspecific abnormal finding of lung field; R93.89 Abnormal findings on diagnostic imaging of other specified body structures
CPT/HCPCS: 71046